=== PATIENT | female | born 1945 | race Caucasian/White ===

== ENCOUNTER → 2018-07-07 | Outpatient (CLI) | payer OTHER, MEDICARE ==
[~2018-07-07] MED LIST: ACYCLOVIR 400400 MG PO; ADULT LOW DOSE81 MG PO; AMOXICILLIN500 M1 PO; CALCIUM 600 +1 EAC7 PO; CALCIUM 600 +1 EAC8 PO; CIPROFLOXACIN500 M3 PO; FERRO-TIME325 MG PO; FISH OIL 1,0001 EAC5 PO; FLAGYL500 MG PO; FLUOCINONI0.05 %/65 TRANSDERM; FOLIC ACID1 MG PO; GLUCOSAMINE &1 EAC1 PO; HYDROCODON-ACE1 EACH PO; IRON325 PO; LEVAQUIN 500 M500 M2 PO; LEXAPRO 10 MG T10 MG PO; LIPITOR40 MG PO; LOMOTIL TABLET1 EACH PO; MULTI VITAMIN1 EACH PO; MULTIVITAMINS PO; NAPROSYN500 MG PO; OMEPRAZOLE20 M1 PO; PANTOPRAZOLE SO40 M1 PO; POTASSIUM CITR10 ME1 PO; PREMPRO 0.3 MG1 EACH PO; SLOW RELEASE I142 M1 PO; TRIAMCINOLONE A80 G2 TRANSDERM; VANIQA60 GM TRANSDERM; VITCB500GO PO
== END ==
LOC: RAD 16:15
DX: R05 Cough (principal); R63.4 Abnormal weight loss; M85.89 Other specified disorders of bone density and structure, multiple sites; M47.816 Spondylosis without myelopathy or radiculopathy, lumbar region; M48.061 Spinal stenosis, lumbar region without neurogenic claudication

== ENCOUNTER 2018-07-11 09:56 | Inpatient (IN) | payer OTHER, MEDICARE ==
[~2018-07-11] VITALS: Ht 165.1 cm; Wt 58.3 kg
--- NOTE | ~2018-07-11 | HC ---
[facility] [place] [address] CONSULTATION Name: TUAN SALINAS Room #: 203-P [facility] IN ..#: [id number] Admission: 07/11/18 Attend Phys: Carl Wharton MD Discharge: Date of : 43 Report #: [id number] THIS REPORT FOR: //name// CC: Carl Durbin DATE OF SERVICE: 07/17/2018 HISTORY OF PRESENT ILLNESS: A 73-year-old female with hyperlipidemia, ulcerative colitis, status post prior colon resection, admitted this time with continuing cough, weight loss, and decreased appetite. She was noted to have multiple lung nodules as well as possible mets, right lung, left anterior ribs, sternum and in the brain. There is a soft tissue mass 7 x 8 mm anterior horn, left lateral ventricle. Course has been complicated by pulmonary embolism and she is being anticoagulated. Plan is for a possible biopsy soon. She has had an overall functional decline. We are seeing her in rehabilitation medicine consultation. PAST MEDICAL HISTORY: Includes ulcerative colitis, depression, hypercholesterolemia, history of kidney stones, pouchitis x 3 since colon resection, staghorn left kidney surgery x 3. 0 ALLERGIES: ADHESIVE TAPE, NONSTEROIDALS. MEDICATIONS: Please see the full medication listing. This includes vitamins, herbals, and supplements per report. HABITS: Nonsmoker. Only has alcohol on special occasions. SOCIAL HISTORY: House, spouse, 2 steps in. Did not utilize gait aids. Daughter in the area. REVIEW OF SYSTEMS: She has the cough, decreased appetite. Complains of generalized weakness. No current chest pain or abdominal discomfort or shortness of breath. PHYSICAL EXAMINATION: GENERAL: A 73-year-old female in no obvious distress. She is alert, pleasant. VITAL SIGNS: Last recorded temperature 97.9, pulse 75, respirations 16, blood pressure 137/76. She is alert, follows basic 1-step commands. HEENT: Facies are symmetric. EXTREMITIES: She has functional range of motion of both upper extremities with strength grade 4- to 3+/5. DTRs are trace to 1. Lower extremities, no focal calf swelling. Functional range of motion with strength grade 4-/5. DTRs are trace to 1. She is min assist with sit to stand. Gait was 45 feet min assist with a front-wheeled walker. [address] [address] CONSULTATION Name: BRADTUAN L Room #: 203-[facility]#: [id number] Admission: 07/11/18 Attend Phys: Carl Wharton MD Discharge: Date of : 43 Report #: [id number] ASSESSMENT: A 73-year-old white female with the following problem list: 1. 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 2. Suspected lung cancer was primary with apparent metastases to the mediastinum, left adrenal gland. 3. Multiple pulmonary nodules. 4. Pulmonary embolism, on heparin. 5. Nausea and vomiting, decreased appetite. 6. History of ulcerative colitis, status post colectomy. 7. Urinary tract infection. PLAN: Therapies are working with her to try to keep up her strength and endurance. Apparently under consideration for biopsy, possibly tomorrow depending upon her medical stability with the pulmonary embolism and anticoagulation. We will be glad to follow along with you regarding her rehab therapy needs. By: [id number] Waqas Potter MD /nt
[~2018-07-11 09:56] MED LIST changes: -IRON325 PO; -OMEPRAZOLE20 M1 PO; -POTASSIUM CITR10 ME1 PO
[2018-07-11 09:57] VITALS: BP 127/69
[2018-07-11 11:22] LABS: ABSOLUTE NEUTROPHILS 11.2 thou/uL (1.4-8.2); BASOPHILS 0.4 % (0.0-2.0); EOSINOPHILS 2.9 % (0.0-3.0); HEMATOCRIT 40.6 % (37.0-47.0); HEMOGLOBIN 13.7 gm/dL (12.0-15.0); LYMPHOCYTES 9.3 % (24.0-44.0); MCH 27.9 pg (26.0-34.0); MCHC 33.7 g/dL (28.0-37.0); MCV 82.9 fL (80.0-100.0); MONOCYTES 7.9 % (1.0-8.0); PLATELET COUNT 356 thou/uL (150-400); POLYS 79.5 % (36.0-66.0); WBC 14.1 thou/uL (4.0-11.0)
[2018-07-11 11:27] LABS: CALCIUM 10.1 mg/dL (8.5-10.1); POTASSIUM 4.1 mmol/L (3.5-5.1)
--- NOTE | 2018-07-11 13:15 | EKG ---
[place] [address] [facility] [place] [address] ELECTROCARDIOGRAM REPORT Name: TUAN SALINAS [id number] Admission: 07/11/18 Attend Phys: Discharge: Date of : 43 Report #: [id number] THIS REPORT FOR: //name// [facility] ED Test Date: 2018-07-11 Test Time: 11:34:06 Pat Name: TUAN SALINAS Department: Room: Gender: F Motor And Controls Tester: DUNIA : 1945 Requested By: Phillip Suarez Order Number: [id number] MD: Jostin Robledo Measurements Intervals Ute Rate: 84 P: 36 MI: 164 QRS: -10 QRSD: 95 T: 15 QT: 383 QTc: 453 Interpretive Statements Sinus rhythm Low voltage, precordial leads Compared to ECG 03/04/2011 09:34:40 Low QRS voltage now present Electronically Signed On 07-11-2018 13:15:07 TANK OFFICER by Jostin Robledo [email or web address] <ELECTRONICALLY SIGNED> By: Jostin Robledo MD 07/11/18 1315 1134 1134 Jostin Robledo MD /SYLWIA
[2018-07-11 14:50] VITALS: BP 112/60
[2018-07-11 15:06] LABS: ALBUMIN 3.5 g/dL (3.4-5.0); DIRECT BILIRUBIN < 0.1 mg/dL (<0.1-0.3); SGOT 25 U/L (15-37); SGPT 13 U/L (30-65); TOTAL BILIRUBIN 0.5 mg/dL (<0.1-1.0); TOTAL PROTEIN 8.2 g/dL (6.4-8.2)
[2018-07-11 15:33] VITALS: BP 120/63
[2018-07-11] MEDS ORDERED: LOMOTIL TABLET1 EACH PO (15:36)
[2018-07-11] MEDS ORDERED: POTASSIUM CITR10 ME1 PO (15:36)
[2018-07-11] MEDS ORDERED: ACYCLOVIR 400400 MG PO (15:38)
[2018-07-11] MEDS ORDERED: IRON325 PO (15:38)
[2018-07-11] MEDS ORDERED: MULTI VITAMIN1 EACH PO (15:39)
[2018-07-11] MEDS ORDERED: OMEPRAZOLE20 M1 PO (15:40)
[2018-07-11 17:11] VITALS: BP 129/72
--- NOTE | 2018-07-11 18:25 | NUR ---
PT A&OX4, IV INTACT IN R AC. PT C/O HEADACHE PAIN FOR DAYS. ALSO HAVING INCREASED WEAKNESS WITH POOR APPETITITE. ORIENTED PT TO ROOM/ CALL LIGHT. TYLENOL GIVEN FOR WHARTON W/O RELIEF. NEW ORDER OBATAINED FOR HYDROCODONE.
[2018-07-11 19:25] VITALS: BP 119/72
[2018-07-12 03:34] LABS: URINE COLOR YELLOW
[2018-07-12 03:35] LABS: URINE BILIRUBIN NEGATIVE (Negative); URINE BLOOD 1+ (Negative); URINE CLARITY SL.CLOUDY; URINE GLUCOSE-RANDOM* NEGATIVE (Negative); URINE KETONES TRACE (Negative); URINE LEUKOCYTES-REFLEX TRACE (Negative); URINE NITRITE-REFLEX POSITIVE (Negative); URINE PROTEIN (DIPSTICK) TRACE (Negative); URINE SPECIFIC GRAVITY >= 1.030 (1.005-1.035); URINE UROBILINOGEN 0.2 E.U./dl (0.2-1.0)
[2018-07-12 03:41] LABS: CASTS None Seen /LPF (None Seen); MUCUS 0-3 Light strn/LPF (None Seen); SQUAMOUS 0-3 Few /LPF (0-3)
[2018-07-12 03:42] LABS: BACTERIA-REFLEX >30 Many /HPF (None Seen); CRYSTALS None Seen /LPF (None Seen); TRANSITIONAL EPITHEL CELL 4-10 Moderate /LPF (None Seen); WBC CLUMPS Occasional (None Seen)
[2018-07-12 04:55] VITALS: BP 127/65
[2018-07-12 07:20] VITALS: BP 123/61
--- NOTE | 2018-07-12 08:05 | NUR ---
ASSUMED CARE AT 1900, ASSESSMENT COMPLETED. PT REPORTS MODERATE, CONSTANT HEADACHE, GIVEN NORCO WHICH HELPED HER FALL ASLEEP. C/O NAUSEA WITHOUT VOMITING, SOME DRY HEAVES; GAVE ZOFRAN WITH AM MEDS SHE WAS NPO EXCEPT SIPS/MEDS AND STATES SHE OFTEN GETS NAUSEA WITH MEDS ON EMPTY STOMACH. UA CAME BACK POSITIVE FOR UTI, STARTED ON IV ABX. WENT FOR CT SCAN ABOUT 0315, STAT RESULTS CALLED FROM RADIOLOGY AND REPORTED TO SWATI DAVIS NP. NPO AT MIDNIGHT FOR EGD TODAY. NO OTHER CONCERNS, SHIFT REPORT GIVEN AT 0700.
[2018-07-12] MEDS ORDERED: IRON325 PO (09:12)
--- NOTE | 2018-07-12 12:11 | NUR ---
ASSESSMENT-PT LIVES AT HOME WITH HER . PT WALKS ON HER OWN AND DOES HER OWN ADLS. THEY HAVE A DTR THAT LIVES IN THE AREA AND 2 SONS THAT ARE OUT OF TOWN. A SON LIVES IN [place] AND ANOTHER SON IN [place]. PT VOICES NO CONCERNS RELATED TO DC. FOLLOWING TO ASSIST WITH DC PLANNING.
--- NOTE | 2018-07-12 15:49 | NUR ---
GAVE REPORT TO SENIOR SUITES NURSE PATIENT MOVING TO ROOM 220.PT AND TO MEET WITH DR ZEPEDA AT 1600. PT 'S BELONGINGS TO BE PACKED AND SENT WITH PATIENT.
[2018-07-12 15:54] VITALS: BP 123/61
--- NOTE | 2018-07-12 16:53 | NUR ---
PATIENT MOVED TO ROOM 220 REPORTED TO CHARGE NURSE, THAT DR WEINER AND DR ROMO AGREED PER DR WEINER'S RECOMMENDATION THAT LOVENOX NOT BE HELD PATIENT HAS BLOOD CLOT IN LUNG.
[2018-07-12 17:02] VITALS: BP 132/67
[2018-07-12 18:13] LABS: HEMATOCRIT 35.5 % (37.0-47.0); HEMOGLOBIN 11.8 gm/dL (12.0-15.0); MCH 27.7 pg (26.0-34.0); MCHC 33.3 g/dL (28.0-37.0); MCV 83.1 fL (80.0-100.0); RBC 4.28 mil/uL (4.20-5.00); RDW 15.5 % (10.5-14.5); WBC 11.7 thou/uL (4.0-11.0)
[2018-07-12 18:28] LABS: INR 1.1; PROTIME 11.4 Seconds (9.3-11.4)
--- NOTE | 2018-07-12 18:40 | NUR ---
PATIENT TRANSFERRED FROM [facility], REPORT RECEIVED FROM DENAE/LORRIE. PATIENT UP WITH [facility] TO [facility]. PATIENT HAS MULTIPLE MASSES FOUND FROM CT SCAN AND MRI. PATIENT HAS RIGHT AC WITH NS AT 100CC/HR. PATIENT ON CLEAR LIQUID DIET. PATIENT WILL BE NPO TONIGHT FOR EGD TOMORROW, PATIENT STILL WILL GET LOVENOX SHOT TONIGHT PER DR WEINER. COMPUTER INSTRUCTOR/CASSIE CALLED PATIENT WILL NEED TO TRANSFER TO CCU, LARGE , REPORT GIVEN TO LINDA/LORRIE.
[2018-07-12 19:10] VITALS: BP 150/81
[2018-07-12 21:51] VITALS: BP 132/67
--- NOTE | 2018-07-12 22:02 | NUR ---
PT ARRIVED TO UNIT AT APPROX SHIFT CHANGE WITH FAMILY AND BELONGINGS. PT AOX4, VSS, TELE PUT ON, ADMIT STRIP PRINTED & DOCUMENTED. WILL ACKNOWLEDGE/IMPLEMENT ORDERS.
[2018-07-13 02:42] LABS: CREATININE 0.9 mg/dL (0.6-1.0); POTASSIUM 3.7 mmol/L (3.5-5.1)
[2018-07-13 04:33] VITALS: BP 118/59
--- NOTE | 2018-07-13 06:18 | NUR ---
PT AOX4, UP STANDYBY ASSIST, PT ABLE TO MOVE/REPOSITION SELF IN BED. C/O HEADACHE- MANAGED WITH PO PAIN MEDS. DENIES CHEST PAIN. VSS, O2 SATS WNL ON ROOM AIR. NO S/SX OF CARDIAC OR RESP DISTRESS NOTED. HEPARIN CONTINUES PER PROTOCOL. PT RESTED WELL THROUGHOUT NIGHT. WILL CONTINUE TO MONITOR AND FOLLOW POC.
[2018-07-13 07:10] VITALS: BP 122/69
[2018-07-13 11:34] VITALS: BP 122/66
[2018-07-13 14:51] VITALS: BP 130/85
--- NOTE | 2018-07-13 17:22 | NUR ---
ASSESSMENT DOCUMENTED. PT ALERT AND ORIENTED. VSS. RECEIVED PRN PAIN MED FOR WHARTON WITH PARTIAL RELIEF. ON HEPARIN DRIP. NO CONCERN AT THIS TIME. WILL CONTINUE TO MONITOR.
--- NOTE | 2018-07-13 18:43 | HC ---
[facility] [place] [address] CONSULTATION Name: TUAN SALINAS Sadie Room #: 203-[facility] IN ..#: [id number] Admission: 07/11/18 Attend Phys: Carl Wharton MD Discharge: Date of : 43 Report #: [id number] THIS REPORT FOR: //name// CC: Carl Durbin MD DATE OF SERVICE: 07/12/2018 PRIMARY CARE PHYSICIAN: Dr. Yao Durbin. REFERRAL PHYSICIAN: Dr. Sher. REASON FOR REFERRAL: Multiple lung nodules. HISTORY OF PRESENT ILLNESS: The patient is a 73-year-old white female who was admitted with progressive weakness, weight loss, headache for the past week or so. CT chest shows multiple lung nodules. A pulmonary consultation was requested. The patient has been usual self until about few weeks ago, she started to develop intermittent nonproductive cough. She has had a nonproductive cough for the past 2 months. For the past few weeks, she has also had trouble with poor appetite and weight loss. She was scheduled to see a dog hair clipper for evaluation. With worsening symptoms, she presented to the Emergency Room. Otherwise, denies any recent febrile illness, chest pain or hemoptysis, nausea, vomiting, diarrhea. She has never smoked, but has been exposed to secondhand smoke. 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 PAST SURGICAL HISTORY: Status post proctocolectomy in 2002 for ulcerative colitis performed at [facility], tonsillectomy, adenoidectomy as a child. ALLERGIES: None to medications. HOME MEDICATIONS: Reviewed. This include Lipitor, Zovirax, Lomotil, Lexapro, iron supplements, Ativan, Prilosec, potassium supplements. [address] [address] CONSULTATION Name: TUAN SALINAS Room #: 203-P [facility] IN ..#: [id number] Admission: 07/11/18 Attend Phys: Carl Wharton MD Discharge: Date of : 43 Report #: [id number] FAMILY HISTORY: Notable for coronary artery disease in both mother and father, both . SOCIAL HISTORY: , has never smoked, but has been exposed to secondhand smoke. She drinks socially. REVIEW OF SYSTEMS: As mentioned above, otherwise 10-point system review negative. PHYSICAL EXAMINATION: GENERAL: She is awake, alert, in no distress. VITAL SIGNS: Temperature is 98 degrees Fahrenheit, pulse is 80, respiratory rate is 18, blood pressure 130/67 mmHg, saturation 95%. HEENT: Normocephalic, atraumatic. NECK: Supple, without lymphadenopathy or thyromegaly. CHEST: Breath sounds are good bilaterally without any rales or wheezes. CARDIOVASCULAR: Normal S1, S2. No murmurs or gallop. There is no JVD. There is no carotid bruit. Pulses are 2+/4+ bilaterally. ABDOMEN: Soft, nontender, no organomegaly or masses felt. GENITOURINARY: Deferred. RECTAL: Deferred. EXTREMITIES: There is no edema, cyanosis or clubbing. LABORATORY DATA: CT chest shows 3 cm mass in the right lower lobe, medial basal segment, 2 small nodules involving the right lower lobe measuring less than 2 cm in diameter with some evidence of mild central cavitation, bilateral pulmonary embolus involving the right side, felt to be moderate with near complete occlusion involving the right pulmonary artery, mild mediastinal and left hilar adenopathy, diffuse osseous metastatic disease, left adrenal gland metastases, uterine fibroid. CT head reveals small soft tissue mass involving the anterior horn of the left lateral ventricle, possible extension into the third ventricle. Lactic acid is normal. TSH is 1.9. MRI of the brain shows multiple cortical subcortical enhancing foci concerning for tumor, possible enhancing mass involving the cranial nerve 5 on the right. Electrolytes are normal, creatinine is normal. Liver enzymes grossly unremarkable except for elevated alkaline phosphatase. Albumin 3.5. IMPRESSION: 1. Multiple lung nodules and a large lung mass involving the left lower lobe with mild mediastinal adenopathy in this 73-year-old white female. She has what appears to be skeletal metastases along with left adrenal mets. CT head also shows TRANSPLANT WORKER mass. The patient is a lifetime nonsmoker, but has been exposed to secondhand smoke. She had a recent weight loss with complaints of weakness and headaches. Primary bronchogenic carcinoma with metastases is likely. 2. Pulmonary embolus, moderate on the right side. This appears to be acute. It is provoked due to above processes. [facility] [address] [place] [address] CONSULTATION Name: TUAN SALINAS Room #: 203-P [facility] IN M.R.#: [id number] Admission: 07/11/18 Attend Phys: Carl Wharton MD Discharge: Date of : 43 Report #: [id number] 3. Poor appetite, weight loss, nausea, vomiting, likely due to above process. Plans for EGD noted, though I think this could be deferred for now until pulmonary embolus is adequately treated prior to proceeding further workup. 4. Peripheral vascular disease. 5. Osteoarthritis. 6. History of depression. RECOMMENDATION AND DISCUSSION: I think the patient's pulmonary embolus is acute and should be a priority at this time with anticoagulation. Would suggest deferring any elective procedure until she is stable, perhaps 1-2 weeks if possible. Her nausea and vomiting and weight loss may be related to TRANSPLANT WORKER symptoms, TRANSPLANT WORKER metastases. Symptom control may be more appropriate at this time. Once the patient is relatively stable from pulmonary embolus standpoint, I think we can reasonably proceed with tissue biopsy for diagnosis. Perhaps in this case, bone biopsy may be safest to establish a diagnosis. The lung nodules are peripheral and may be amenable for CT needle biopsy. The left lower lobe nodule is too medial for CT needle biopsy. Note that the peripheral lung nodule on the right side is somewhat small, probably too small for needle biopsy. Would recommend heparin weight-based therapy for now. Would await at least a week or so unless the procedure is felt to be emergent. At that time, we will repeat CT angiogram if renal function is adequate to assess whether it is safe to discontinue anticoagulation temporarily prior to proceeding with the procedure. We will await the result of leg Doppler ultrasound. More than likely, the patient may need IVC filter if interruption to anticoagulation is anticipated. I discussed the findings in detail with the patient and her . We also discussed with Dr. Sher. I have also left a message to discuss the case with the GI Service. Thank you for this consultation. <ELECTRONICALLY SIGNED> By: Harley Xie MD 07/13/18 1843 1808 2300 Harley Xie MD /nt
[2018-07-13 19:25] VITALS: BP 120/73
[2018-07-13 23:33] VITALS: BP 120/73
--- NOTE | 2018-07-14 00:56 | NUR ---
ASSUMED CARE OF PT AT SHIFT CHANGE. ASSESSMENTS CHARTED. PT AOX4, VSS, PT UP STANDBY ASSIST, AMBULATES WITH WALKER. O2 SATS REMAIN WNL ON ROOM AIR. NO S/SX OF CARDIAC OR RESP DISTRESS NOTED. HEPARIN DRIP CONTINUES. PT CURRENTLY RESTING IN BED, WILL CONTINUE TO MONITOR AND FOLLOW POC.
[2018-07-14 04:55] VITALS: BP 140/78
[2018-07-14 05:06] LABS: HEMATOCRIT 32.1 % (37.0-47.0); HEMOGLOBIN 10.5 gm/dL (12.0-15.0); MCH 26.9 pg (26.0-34.0); MCHC 32.7 g/dL (28.0-37.0); MCV 82.3 fL (80.0-100.0); RBC 3.9 mil/uL (4.20-5.00); RDW 15.4 % (10.5-14.5); WBC 10.1 thou/uL (4.0-11.0)
[2018-07-14 07:35] VITALS: BP 121/62
[2018-07-14 11:40] VITALS: BP 140/80
--- NOTE | 2018-07-14 12:39 | 2DMMODE ---
[facility] [address] [place] [address] 2 D/M-MODE ECHOCARDIOGRAM Name: TUAN SALINAS Room #: 203-P [facility] IN [facility]#: [id number] Admission: 07/11/18 Attend Phys: Carl Wharton MD Discharge: Date of : 43 Date of Service: 07/14/18 1238 Report #: [id number] THIS REPORT FOR: //name// APPROVED REPORT Study performed: 07/14/2018 09:47:56 EXAM: Comprehensive 2D, Doppler, and color-flow Echocardiogram Patient Location: Bedside Room #: 203 Status: routine BSA: 1.64 HR: 76 bpm BP: 121/62 mmHg Rhythm: NSR Other Information Study Quality: Adequate Risk Factors: Cardiac Risk Factors: Hyperlipidemia Indications Pulmonary Embolism 2D Dimensions IVSd: 9.47 (7-11mm) LVOT Diam: 19.00 (18-24mm) LVDd: 37.43 mm PWd: 9.22 (7-11mm) Ascending Ao: 32.08 (22-36mm) LVDs: 24.58 (25-40mm) Aortic Root: 25.13 mm LV Single Plane 4CH: 58.11 % LV Single Plane 2CH: 52.57 % Volumes Left Atrial Volume (Systole) Single Plane 4CH: 17.32 mL Single Plane 2CH: 35.81 mL LA ESV Index: 17.00 mL/m2 Aortic Valve AoV Peak Geovanny.: 1.22 m/s AO Peak Gr.: 5.97 mmHg LVOT Max P.49 mmHg LVOT Max V: 0.93 m/s MARYSE Vmax: 2.17 cm2 [facility] [address] [place] [address] 2 D/M-MODE ECHOCARDIOGRAM Name: BRADTUAN Sadie Room #: 203-P [facility]#: [id number] Admission: 07/11/18 Attend Phys: Carl Wharton MD Discharge: Date of : 43 Date of Service: 07/14/18 1238 Report #: [id number] Mitral Valve E/A Ratio: 0.8 MV Decel. Time: 175.20 ms MV E Max Geovanny.: 0.60 m/s MV A Geovanny.: 0.72 m/s MV PHT: 50.81 ms IVRT: 58.82 ms TDI E/Lateral E': 7.50 E/Medial E': 10.00 Medial E' Geovanny.: 0.06 m/s Lateral E' Geovanny.: 0.08 m/s Pulmonary Valve PV Peak Geovanny.: 0.85 m/s PV Peak Gr.: 2.91 mmHg FL End Vmax: 0.95 m/s Pulmonary Vein P Vein S: 0.44 m/s P Vein A: 0.31 m/s P Vein D: 0.37 m/s P Vein A Dur.: 100.3 msec P Vein S/D Ratio: 1.19 Tricuspid Valve TR Peak Geovanny.: 2.26 m/s RAP Estimate: 7.00 mmHg TR Peak Gr.: 20.43 mmHg PA Pressure: 27.00 mmHg Left Ventricle The left ventricle is normal size. There is normal LV segmental wall motion. There is normal left ventricular wall thickness. Left ventricular systolic function is normal. The left ventricular ejection fraction is within the normal range. LVEF is 50-55%. Grade I - abnormal relaxation pattern. Right Ventricle The right ventricle is normal size. The right ventricular systolic function is normal. Atria The left atrium size is normal. The right atrium size is normal. Aortic Valve The aortic valve is normal in structure. No aortic regurgitation is present. There is no aortic valvular stenosis. [facility] [address] [place] [address] 2 D/M-MODE ECHOCARDIOGRAM Name: TUAN SALINAS Room #: 203-P [facility] IN [facility]#: [id number] Admission: 07/11/18 Attend Phys: Carl Wharton MD Discharge: Date of : 43 Date of Service: 07/14/18 1238 Report #: [id number] Mitral Valve There is mild mitral annular calcification. Mild mitral regurgitation. No evidence of mitral valve stenosis. Tricuspid Valve The tricuspid valve is normal in structure. Trace tricuspid regurgitation. Pulmonary artery pressure is 27 mmHg. Pulmonic Valve The pulmonary valve is normal in structure. Mild to moderate pulmonic regurgitation. Great Vessels The aortic root is normal in size. IVC is normal in size and collapses >50% with inspiration. Pericardium There is no pericardial effusion. <Conclusion> The left ventricle is normal size. LVEF is 50-55%. Grade I - abnormal relaxation pattern. The right ventricle is normal size. The left atrium size is normal. There is mild mitral annular calcification. Mild mitral regurgitation. Trace tricuspid regurgitation. Pulmonary artery pressure is 27 mmHg. Mild to moderate pulmonic regurgitation. The aortic root is normal in size. There is no pericardial effusion. <ELECTRONICALLY SIGNED> By: Michael Aguilar MD, FACC 07/14/18 1238 1238 1238 Michael Aguilar MD, FACC /INF
[2018-07-14 15:20] VITALS: BP 135/71
--- NOTE | 2018-07-14 17:20 | NUR ---
ASSESSMENT CHARTED - MEDS PER SEP - NO CO'S OF NAUSEA. GIVEN MEDICATIONS FOR COS OF HEADACHE WITH GOOD RELIEF. SANJEEV ONLY SAMLL AMOUNTS OF DIET - PATIENT STATES NO APPITITE - HAS BEEN EATING POPSICLES. PT UP TO THE BATHROOM - REFUSED TO SIT IN THE CHAIR. HEPARIN CONTINUES ORDERED. NO CO'S AT THE PRESENT TIME.
[2018-07-14 19:35] VITALS: BP 149/83
[2018-07-15 04:06] VITALS: BP 141/87
--- NOTE | 2018-07-15 04:55 | NUR ---
ASSESSMENT DOCUMENTED. ON HEPARIN DRIP AT 20.02 UNITS/KG/HR (9.72 ML/HR) INFUSING AT RIGHT FOREARM. COMPLAINT OF THROBBING HEADACHE, 02/10. PRN MEDS FOR PAIN GIVEN WITH GOOD RELIEF. STILL WITH POOR APPETITE. ENCOURAGED TO TAKE SMALL FREQUENT FEEDING. OFFERED SUPPLEMENT DIET BUT PT REFUSED. DENIES ANY N/V. PATIENT REFUSED BATH AND ORAL CARE. PT REQUESTED THAT SHE WOULD WANT DO IT IN THE MORNING. FF UP POC.
[2018-07-15 05:46] LABS: HEMATOCRIT 37.8 % (37.0-47.0); HEMOGLOBIN 12.4 gm/dL (12.0-15.0); MCHC 32.7 g/dL (28.0-37.0); MCV 82.6 fL (80.0-100.0); RBC 4.58 mil/uL (4.20-5.00); RDW 15.4 % (10.5-14.5); WBC 12.1 thou/uL (4.0-11.0)
[2018-07-15 08:00] VITALS: BP 143/84
[2018-07-15 12:00] VITALS: BP 146/86
[2018-07-15 16:00] VITALS: BP 148/74
--- NOTE | 2018-07-15 17:44 | NUR ---
ASSESSMENT TOLERATED - MEDS PER MAR - GIVEN HYDROCODDONE FOR CO'S OF HEADACHE WITH GOOD EFEECT. SANJEEV SMALL AMOUNTS OF DIET AND FLUIDS. - FAMILY ENCOURAGED TO BRING PATIENT IN FOOD - SHE ATE A SLICE OF PIZZA - CHEESECAKE AND ICECREAM THIS EVENING FOR SUPPER. HEPARIN RATE NOT CHAGED FROM THSI A, 22 UNITS AN HOUR APPT @ 1245 WAS 60.2. PT NOT WANTING TO SIT UP - OUT OF BED TO BATHROOM OTHERWISE IN BED. FAMILY AT THE BEDSIDE, NO CO'S AT THE PRESENT TIME.
--- NOTE | 2018-07-15 17:48 | NUR ---
ASSESSMENT CHARTED - MEDS PER SEP - GIVEN TYLENOL FOR CO'S OF GERNERALIZED PAIN WITH GOOD RELIEF. SANJEEV DIET AND FLUIDS.. PT UP IN ROOM - AMBULATED IN THE HALLS. PT STATING HE JUST WANTS TO GO HOME AND THAT HE IS BORED HERE. DRESSING TO LEGS BILATERALLY COMPLETED. WOUNDS WITH SILVADENE APPLIED L LEG APPLIED XEEROFOEM GAUZE DUE TO WOUND THEN ABD APPLIED AND KERLIX. R LEG WITH SILVADENE /ABD AND KERLIX. ODEMA REMAINS TO FEET AND LEGS BILAT. NO CO'S AT THE PRESENT TIME.
[2018-07-15 20:11] VITALS: BP 136/72
--- NOTE | 2018-07-16 00:27 | NUR ---
AOX4, DENIES ANY PAIN. CLEAR LUNG SOUNDS. ON ROOM AIR. ON HEPARIN DRIP AT 22 UNITS/KG/HR (10.68 ML/HR) INFUSING AT RIGHT FOREARM. ENCOURAGED SMALL FREQUENT FEEDING. FF UP POC.
[2018-07-16 05:20] VITALS: BP 144/79
[2018-07-16 07:15] VITALS: BP 148/86
[2018-07-16 11:22] VITALS: BP 131/81
--- NOTE | 2018-07-16 11:54 | NUR ---
FERNANDO DOES NOT SEEM TO BE IN PAIN AT THIS TIME. SHE IS QUITE CONCERNED SHE IS DOES NOT HAVE THE APPETITE TO EAT. EVEN TO DRINK SUPPLEMENT DRINK. SHE HAS STATYED IN BED THROUGH THE DAY. RESPIRATIONS NON LABORED. WILL CONT WITH PLAN OF CARE.
[2018-07-16 19:48] VITALS: BP 122/76
[2018-07-17 04:22] LABS: HEMATOCRIT 34.7 % (37.0-47.0); HEMOGLOBIN 11.6 gm/dL (12.0-15.0); MCH 27.6 pg (26.0-34.0); MCHC 33.5 g/dL (28.0-37.0); MCV 82.5 fL (80.0-100.0); RBC 4.21 mil/uL (4.20-5.00); RDW 15.9 % (10.5-14.5)
[2018-07-17 04:45] VITALS: BP 137/76
[2018-07-17 04:59] LABS: CALCIUM 9.2 mg/dL (8.5-10.1); CREATININE 0.8 mg/dL (0.6-1.0); POTASSIUM 3.2 mmol/L (3.5-5.1)
--- NOTE | 2018-07-17 08:34 | NUR ---
ASSESSMENTS CHARTED. PATIENT UP TO THE BATHROOM 4 TIMES DURING THE NIGHT. MUCUS STOOL. LAB RESULTS SHOWED HEPARIN LOW, RATE INCREASED PER PROTOCOL. C/O HEADACHE, DOSED CHARTED. PLAN OF CARE TO PERFORM BIOPSY ONCE SHE IS MORE STABLE.
--- NOTE | 2018-07-17 14:03 | NUR ---
Poor oral intake continues for several weeks. May want to consider start Clinimix PPN to run 80ml/hr with 250ml 20% lipids MWF until appetite better to prevent further nutrition decline
[2018-07-17 19:45] VITALS: BP 136/72
[2018-07-18 04:45] VITALS: BP 135/79
[2018-07-18 06:28] LABS: HEMATOCRIT 38.3 % (37.0-47.0); HEMOGLOBIN 12.7 gm/dL (12.0-15.0); MCH 27.4 pg (26.0-34.0); MCHC 33.1 g/dL (28.0-37.0); MCV 82.7 fL (80.0-100.0); RBC 4.63 mil/uL (4.20-5.00); RDW 16.3 % (10.5-14.5)
[2018-07-18 06:38] LABS: CALCIUM 9.5 mg/dL (8.5-10.1); POTASSIUM 3.9 mmol/L (3.5-5.1)
--- NOTE | 2018-07-18 07:20 | NUR ---
PT RESTING ON AND OFF THRU THE NOC, PRN PAIN MED GIVEN FOR WHARTON AT HS, VSS, HEPARIN GTT INFUSING,WILL CON'T TO MONITOR PER PPOC.
[2018-07-18 07:34] VITALS: BP 123/79
--- NOTE | 2018-07-18 10:42 | NUR ---
FAXED FACE SHEET TO [facility] SPOKE WITH RASHID IN ADM. SHE RECEIVED AND WILL REVIEW FOR ACUTE REHAB STAY. DCP TO FOLLOW.
--- NOTE | 2018-07-18 13:13 | NUR ---
per phys patient/family interested in AD. Patient and sp report they have completed and hospital should have a copy. Checked with medical records no copy. Called Dr Calhoun office and left message. Inquiring also on Eliquis coverage. Prescription on patients chart. Her [facility] is [facility] [address]. Left message on pharmacy line to inquire into coverage. updated patient who is also agreeable to 5N once stable.
[2018-07-18 16:15] VITALS: BP 124/76
[2018-07-18 20:15] VITALS: BP 151/78
[2018-07-19 04:45] VITALS: BP 152/81
--- NOTE | 2018-07-19 05:36 | NUR ---
ASSUME CARE CARE 1900. PT STABLE. DENIES ANY PAIN. TOLERATES ACTIVITY WITH WALKER TO BATHROOM NEEDS REHAB. PT ON HEPARIN DRIP FOR PE. PLAN IS TO DO BONE BIOPSY WHEN HEALED FROM PE. WILL CONTINUE TO MONITOR AND FOLLOW WITH POC
[2018-07-19 06:31] LABS: HEMATOCRIT 36.1 % (37.0-47.0); HEMOGLOBIN 11.9 gm/dL (12.0-15.0); MCH 27.2 pg (26.0-34.0); MCHC 32.9 g/dL (28.0-37.0); MCV 82.7 fL (80.0-100.0); RBC 4.36 mil/uL (4.20-5.00); RDW 16.3 % (10.5-14.5); WBC 22.8 thou/uL (4.0-11.0)
[2018-07-19 06:40] LABS: CALCIUM 9.6 mg/dL (8.5-10.1); POTASSIUM 4.1 mmol/L (3.5-5.1)
[2018-07-19 08:30] VITALS: BP 135/71
--- NOTE | 2018-07-19 08:45 | NUR ---
PATIENT COMPLETED AD YESTERDAY PLACED ON CHART. PATEINT ACCEPTED TO 5N AND SHE IS IN AGREEMENT WITH PLAN.
[2018-07-19] MEDS ORDERED: AUGMENTIN 500-1 EACH PO (10:36)
[2018-07-19] MEDS ORDERED: HYDROCODONE-AP1 EAC6 PO (10:37)
[2018-07-19] MEDS ORDERED: DEXAMETHASONE 44 M1 PO (10:37)
[2018-07-19] MEDS ORDERED: ENOXAPARIN60 MG/0.1 SUBQ (10:38)
[2018-07-19 13:13] VITALS: BP 133/67
--- NOTE | 2018-07-25 09:09 | HC ---
[facility] [place] [address] CONSULTATION Name: TUAN SALINAS Sadie Room #: 203-P [facility] IN ..#: [id number] Admission: 07/11/18 Attend Phys: Carl Wharton MD Discharge: 07/19/18 Date of : 43 Report #: [id number] THIS REPORT FOR: //name// CC: Dilip Xie MD HISTORY OF PRESENT ILLNESS: This patient was admitted through the Emergency Room with complaints of weight loss, general weakness and nausea, vomiting. She has lost approximately 25 pounds over the last few months and has also complained of headaches. She is a longstanding patient of Dr. Durbin and prior treatment for ulcerative colitis. She is a nonsmoker, but has been exposed to secondhand smoke when previously working and growing up. She describes a nonproductive cough and denies hemoptysis. She was scheduled to see GI as an outpatient prior to this hospitalization and evaluation of her weight loss and diminished appetite. PAST MEDICAL HISTORY: Again, positive for post-colectomy for ulcerative colitis. She had a previous melanoma with local excision from her right flank in March of 2018. PAST SURGICAL HISTORY: Tonsillectomy and adenoidectomy as a child. ALLERGIES: None known. MEDICATIONS: As per the MFR. FAMILY HISTORY: Negative for malignancy. SOCIAL HISTORY: She is occasional social drinker, nonsmoker, though exposed to secondhand smoke. REVIEW OF SYSTEMS: As in history of present illness, otherwise negative. PHYSICAL EXAMINATION: GENERAL: Shows her to be alert. HEENT: Normocephalic. She is thin. NECK: Supple. CHEST: Clear. CARDIOVASCULAR: Normal S1, S2. ABDOMEN: Soft. LYMPHATICS: Did not reveal any supraclavicular, axillary adenopathy. [facility] [address] [place] [address] CONSULTATION Name: MIKE SALINASCHAN Noel Room #: 203-P [facility]#: [id number] Admission: 07/11/18 Attend Phys: Carl Wharton MD Discharge: 07/19/18 Date of : 43 Report #: [id number] EXTREMITIES: No clubbing, cyanosis or edema. NEUROLOGIC: No focal localizing signs. PSYCHIATRIC: Not agitated or confused. HOSPITAL COURSE: A CT scan performed in the Emergency Room shows a 3 cm mass in the right lower lobe with associated adenopathy and a questionable left renal mass. She has bone changes compatible with metastatic disease. MRI of her brain shows possible enhancing mass. ASSESSMENT: Suspected metastatic cancer. PLAN: The patient's CT also showed evidence of pulmonary emboli and she is now on anticoagulation. She is already scheduled for EGD and Dr. Xie wishes to address her emboli prior to consideration of biopsy. She and her understand the need for a tissue diagnosis before embarking on any recommendations or therapy of suspected malignancy. With her weight loss, nausea and vomiting, we could administer a steroid trial to see if this would help with her symptomatology until a directed biopsy and diagnosis is known. She does not appear to be hypocalcemic at this time. Thanks for allowing me to participate in her care and asking me to see her in consultation. Full and further recommendations will be forthcoming following definitive diagnosis. <ELECTRONICALLY SIGNED> By: Lisbeth Meehan MD 07/25/18 0909 [id number] Lisbeth Meehan MD /nt
== END 2018-07-19 14:31 | DRG 871 ==
LOC: ER 09:56 → 2N 14:07 → 4E 14:07 → EROBS 14:07 → 4E 16:32 → ENTRNSPT 07-12 16:10 → SICU 07-12 16:50 → 2N 07-12 18:53 → DELTRNSPT 07-13 12:09 → 2N 07-19 14:27
PROVIDERS: Emergency Medicine; Hospitalist; Internal Medicine Pulmonary Disease; Nurse Practitioner; ADMIT Hospitalist
DX: A41.9 Sepsis, unspecified organism (principal); I26.99 Other pulmonary embolism without acute cor pulmonale; E43 Unspecified severe protein-calorie malnutrition; J18.9 Pneumonia, unspecified organism; G92 Toxic encephalopathy; N39.0 Urinary tract infection, site not specified; G93.89 Other specified disorders of brain; R91.8 Other nonspecific abnormal finding of lung field; Z66 Do not resuscitate; F32.9 Major depressive disorder, single episode, unspecified; E78.00 Pure hypercholesterolemia, unspecified; K21.9 Gastro-esophageal reflux disease without esophagitis; M19.90 Unspecified osteoarthritis, unspecified site; R59.0 Localized enlarged lymph nodes; I73.9 Peripheral vascular disease, unspecified; Z53.8 Procedure and treatment not carried out for other reasons; R16.0 Hepatomegaly, not elsewhere classified; D64.9 Anemia, unspecified; B96.20 Unspecified Escherichia coli [E. coli] as the cause of diseases classified elsewhere; R41.81 Age-related cognitive decline; Z68.21 Body mass index [BMI] 21.0-21.9, adult; Z87.19 Personal history of other diseases of the digestive system; Z87.442 Personal history of urinary calculi; Z79.899 Other long term (current) drug therapy; Z91.048 Other nonmedicinal substance allergy status; Z88.8 Allergy status to other drugs, medicaments and biological substances; Z80.8 Family history of malignant neoplasm of other organs or systems; Z82.49 Family history of ischemic heart disease and other diseases of the circulatory system
CPT/HCPCS: 10081; 10084; 10797

== ENCOUNTER 2018-07-19 10:13 | Inpatient (IN) | payer OTHER, MEDICARE ==
[~2018-07-19] VITALS: Ht 165.1 cm; Wt 59.5 kg
--- NOTE | ~2018-07-19 | H ---
[facility] [place] [address] HISTORY AND PHYSICAL Name: TUAN SALINAS Room #: 503-P ADM IN M.R.#: [id number] Admission: 07/19/18 Attend Phys: Waqas Potter MD Discharge: Date of : 43 Report #: [id number] THIS REPORT FOR: //name// CC: Waqas Durbin DATE OF SERVICE: 07/20/2018 HISTORY AND PHYSICAL/POSTADMISSION PHYSICIAN EVALUATION HISTORY OF PRESENT ILLNESS: The patient is a 73-year-old female with hyperlipidemia, ulcerative colitis, status post prior colon resection, who was originally admitted to [facility] 07/11/2018 with continuing cough, weight loss and decreased appetite. She was noted to have multiple lung nodules as well as possible mets, right lung. Left anterior ribs, sternum and the brain. There was a soft tissue mass 7 x 8 mm anterior horn, left lateral ventricle. Her course was complicated by a pulmonary embolism and she was anticoagulated. She is to have biopsies done as an outpatient. Decadron dose was decreased. She had been on heparin with reduction in size of her pulmonary embolism. Elevated white blood count was thought to likely be from steroids. She also had suspected cancer to the left adrenal gland. This was thought to be lung cancer versus melanoma. Her course was complicated by toxic metabolic encephalopathy, which is gradually improving. She is noted to have significant functional decline and she has now been admitted for acute in-hospital inpatient rehabilitation. 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 ALLERGIES: ADHESIVE TAPE AND NONSTEROIDALS. MEDICATIONS: Please see the full medication listing. This includes vitamins herbal supplements as per report. HABITS: Nonsmoker, only had alcohol on special occasions. SOCIAL HISTORY: House of 2 steps in, did not utilize gait aids, daughter in the area. REVIEW OF SYSTEMS: The patient was seen yesterday after admission and some decreased appetite. Complains of generalized weakness. She denies any chest pain, abdominal discomfort or shortness of breath. PHYSICAL EXAMINATION: GENERAL: The patient was seen yesterday after admission, she was noted to have [facility] [address] [place] [address] HISTORY AND PHYSICAL Name: TUAN SALINAS Room #: 503-P [facility] IN ..#: [id number] Admission: 07/19/18 Attend Phys: Waqas Potter MD Discharge: Date of : 43 Report #: [id number] no specific complaints. She was alert, pleasant could follow basic 1-step commands. HEENT: Appeared to be benign. NEUROLOGIC: Cranial nerves are grossly intact. There was some delay to her responses. She can follow basic 1 step commands. Facies appeared symmetric. CHEST: Some diffuse decreased breath sounds throughout. CARDIOVASCULAR: Regular rate and rhythm. ABDOMEN: Bowel sounds positive, nontender. GENITOURINARY AND RECTAL: Deferred. ASSESSMENT: 1. Brain mass anterior horn, left lateral ventricle. 2. Toxic metabolic encephalopathy, which appears to be improving. 3. Likely metastasis to the brain. 4. Suspected lung cancer versus melanoma as primary with apparent metastases to the mediastinum and left adrenal gland. Biopsy to be done as an outpatient. 5. Multiple pulmonary nodules. 6. Pulmonary embolism, which the patient has been anticoagulated. 7. Decreased appetite. 8. History of ulcerative colitis, status post colectomy. 9. Urinary tract infection. PLAN: She is admitted for acute in-hospital inpatient rehabilitation. From a post-admission physician evaluation perspective, there are no relevant changes since the preadmission screening. Please see the above review of prior and current medical and functional conditions and comorbidities. Please see the patient's previous and current functional status. As far as risk of complications, the patient has multiple medical comorbidities as noted above. Initial plan of care involves the interdisciplinary acute inpatient rehabilitation program with goal maximizing the patient's functional ____. Her measurable functional goals would be for the patient to become modified independent with transfers, mobility, ADLs, cognition, so that she can return back to the home setting. Prognosis is reasonably good with estimated length of stay probably at least 7-14 days pending progress. Potential barriers would include her multiple medical comorbidities and decreased functional status. The patient meets diagnostic criteria for an acute in-hospital inpatient rehabilitation stay. She meets the medical necessity criteria. We will have the multiple quality assurance consultant physicians continue to follow. She does have the tolerance for therapies and has appropriate discharge goals back to the home setting. By: [id number] Waqas Potter MD /nt
--- NOTE | ~2018-07-19 | PLAN ---
[facility] [place] [address] REHAB UNIT PLAN OF CARE Name: TUAN SALINAS Room #: 503-P ADM IN M.R.#: [id number] Admission: 07/19/18 Attend Phys: Waqas Potter MD Discharge: Date of : 43 Report #: [id number] THIS REPORT FOR: //name// CC: Waqas Durbin DATE OF SERVICE: 07/21/2018 PROGRESS NOTE/OVERALL PLAN OF CARE HISTORY: The patient is seen back today in followup. She is in no distress. Last recorded temperature 98.2, pulse 61, respirations 18, blood pressure 145/66. She has been working in therapies with transfers, min assist; gait min assist 125 feet without a device. She is min assist to go up and down four stairs. In occupational therapy, lower body dressing is min assist. In speech therapy, she has [id number] cognitive deficits. ASSESSMENT: 1. Brain mass anterior horn, left lateral ventricle. 2. Likely metastases to the brain. 3. Toxic metabolic encephalopathy, which appears to be improving. 4. Suspected lung cancer versus melanoma as primary with apparent metastases also to the mediastinum and left adrenal gland. Biopsy to be done as an outpatient. 5. Multiple pulmonary nodules. 6. Pulmonary embolism for which the patient has been anticoagulated. 7. Decreased appetite. 8. History of ulcerative colitis, status post colectomy. 9. Urinary tract infection. PLAN: The overall plan of care is based on the preadmission screen, post-admission physician evaluation and information garnered from therapy assessments. 1. Estimated length of stay is at least 7-10 days, pending progress. 2. Medical prognosis is reasonably good. 3. Anticipated interventions includes the interdisciplinary acute inpatient rehabilitation program with goal of maximizing the patient's functional independence, so that she can hopefully return back to her home setting. This will include physical therapy, occupational therapy, and speech therapy, rehabilitation nursing assisting regarding medication management, skin care prophylaxis, bowel and bladder issues and nursing education. Case management is involved as well as the interdisciplinary acute rehabilitation team. We are also having the multiple technical sales consultant physicians involved. 4. Anticipated functional outcomes would be for the patient to become modified independent at least at a walker level with mobility and ADLs as well as improvement as far as cognition. [address] [address] REHAB UNIT PLAN OF CARE Name: TUAN SALINAS Room #: 503-P [facility] IN [facility].#: [id number] Admission: 07/19/18 Attend Phys: Waqas Potter MD Discharge: Date of : 43 Report #: [id number] 5. Discharge destination would be back where she lives in her house, daughters in the area. 6. Expected therapy by discipline includes PT, OT and speech 1 hour per day each 5 days a week throughout the duration of the acute inpatient rehabilitation stay. By: [id number] Waqas Potter MD /nt
[~2018-07-19 10:13] MED LIST changes: +IRON325 PO; +OMEPRAZOLE20 M1 PO; +POTASSIUM CITR10 ME1 PO
[2018-07-19] MEDS ORDERED: AUGMENTIN 500-1 EACH PO (10:36)
[2018-07-19] MEDS ORDERED: DEXAMETHASONE 44 M1 PO (10:37)
[2018-07-19] MEDS ORDERED: HYDROCODONE-AP1 EAC6 PO (10:37)
[2018-07-19] MEDS ORDERED: ENOXAPARIN60 MG/0.1 SUBQ (10:38)
--- NOTE | 2018-07-19 14:43 | NUR ---
ASSESSMENT CHARTED - MEDS PER MAR - NO CO'S OF PAIN OR NASUEA. SANJEEV DIET AND FLUIDS. PT UP TO THE BATHROOM WITH THE USE OF WALKER - PT GIVEN ELIQUIS THIS AM AND HEPARIN D/C'D. SEEN BY PT THIS AM - PT TO REHAB THIS AFTERNOON - REPORT CALLED TO [facility] - TO REHAB VIA WHEELCHAIR NO CO'S AT TIME OF D/C.
[2018-07-19 15:15] VITALS: BP 143/79
[2018-07-19 19:49] VITALS: BP 149/74
--- NOTE | 2018-07-20 03:38 | NUR ---
ASSUMED CARE OF PT AT 1915. PT ALERT AND ORIENTED X4. AMBULATES TO BATHROOM WITH STANDBY ASSIST OF ONE USING GAIT BELT AND WALKER. DENIES PAIN, NAUSEA OR DYPSNEA. HAS HAD LOOSE BM'S X3 TONIGHT. HAS APPEARED TO BE SLEEPING WHEN CHECKED ON HOURLY ROUNDS. FALL PRECAUTIONS IN PLACE.
[2018-07-20 06:13] LABS: HEMATOCRIT 35.8 % (37.0-47.0); HEMOGLOBIN 11.8 gm/dL (12.0-15.0); MCH 27.5 pg (26.0-34.0); MCHC 32.9 g/dL (28.0-37.0); MCV 83.5 fL (80.0-100.0); RBC 4.29 mil/uL (4.20-5.00); RDW 16.6 % (10.5-14.5); WBC 25.3 thou/uL (4.0-11.0)
[2018-07-20 06:22] LABS: CALCIUM 9.7 mg/dL (8.5-10.1); POTASSIUM 4.2 mmol/L (3.5-5.1)
[2018-07-20 07:47] VITALS: BP 137/71
--- NOTE | 2018-07-20 10:45 | NUR ---
Nutrition follow-up: Pt now on rehab unit. Wt is up ~2 lbs over past 4 days. Per nursing, pt is eating very well now w/ ~85% intake of breakfast this morning. Pt showering during attempted visit. Consider low risk.
--- NOTE | 2018-07-20 13:00 | NUR ---
cm visited with pt at bedside. education on dcp, transition of care, home health, outpt rehab and team meetings. pt is a & o x 3, and able to make her needs know. ashley reported " live in house with , 2 steps to enter from garage. have basement and 2nd flood but i will not have to use the stairs, everything is on main level. my daughter and boyfriend have been helping, cooking and cleaning. was independent prior to hospital. have built in shower bench. have walker that was my mom and i can use that if needed. was driving 2-3 days before the hospital. no home health or rehab in past"/ashley. will cont following as needed for dc needs.
--- NOTE | 2018-07-20 17:37 | NUR ---
ASSUMED CARE AT APPROX 0715. PATIENT A/O X4. DENIES PAIN. VSS. UP X1 GB WALKER. PARTICIPAING IN THERAPY. PRN LOMOTIL GIVEN TO ASSIST WITH FREQUENT BMS. UP TO TOILET OR BSC, BRIEFS IN PLACE FOR STRESS INCONTINENCE. FALL PRECAUTIONS IN PLACE. WILL CONTINUE TO MONITOR.
[2018-07-20 19:40] VITALS: BP 145/66
--- NOTE | 2018-07-21 03:24 | NUR ---
ASSESSMENT: PT REMAIN ALERT AND ORIENT TIMES FOUR. UP WITH SBA, STEADY GAIT TO BR. DENIES PAIN. VSS, AFEBRILE. NO CODE STATUS NOTED. NON-PRODUCTIVE COUGH, GOOD EFFORT IN COUGHING. L UPPER ARM IV PATENT AND INTACT. TOLERATING PO INTAKE. SLOW PROGRESS TOWARDS DC GOALS, WILL CONTINUE TO MONITOR.
[2018-07-21 08:29] VITALS: BP 146/78
--- NOTE | 2018-07-21 11:27 | NUR ---
ASSUMED CARE AT 0700. PATIENT IS ALERT AND ORIENTED X3, BUT FORGETFUL. PATIENT VANCE, WATER FILTRATION TECHNICIAN ARE EQUAL. LUNGS ARE CLEAR AND DEMINISHED. ABD IS SOFT WITH BSX4. PATIENT IS SBA WITH GAIT BELT AND ASSIST OF 1 TO THE BR. PATIENT HAS LEFT UPPER ARM S.L. SITE WITHOUT REDNESS OR SWELLING. FALL AND SAFETY PROTOCOLS IN PLACE. DENIES ANY PAIN. CONTINUES TO PROGRESS SLOWLY TOWARDS D/C GOALS. WILL CONTINUE TO MONITER.
[2018-07-21 20:12] VITALS: BP 146/79
--- NOTE | 2018-07-22 02:09 | NUR ---
ASSUMED CARE OF PT AT 1915. PT UP IN WHEELCHAIR THROUGH THE EVENING, VISITING WITH FAMILY. TRANSFERS TO BED WITH ASSIST OF ONE USING GAIT BELT. DENIES PAIN, NAUSEA OR DYPSNEA. PT IS IMPULSIVE, CONFUSED, FORGETFUL. HAS APPEARED TO BE SLEEPING WHEN CHECKED ON HOURLY ROUNDS. BED ALARM ON.
--- NOTE | 2018-07-22 02:12 | NUR ---
ASSUMED CARE OF PT AT 1915. PT ALERT AND ORIENTED X4, CALM AND COOPERATIVE. AMBULATES TO BATHROOM WITH STANDBY ASSIST USING GAIT BELT AND WALKER. HAVING SMALL SOFT UNFORMED BM'S WITH EACH VOID. DENIES PAIN, NAUSEA OR DYPSNEA. HAS APPEARED TO BE SLEEPING WHEN CHECKED ON HOURLY ROUNDS. FALL PRECAUTIONS IN PLACE.
[2018-07-22 07:15] VITALS: BP 154/87
--- NOTE | 2018-07-22 16:37 | NUR ---
ASSUMED CARE AT APPROX 0715. PATIENT A/O X4. C/O HEADACHE. PRN HYDROCODONE ADMINISTERED, PATIENT REPORTED SOME RELIEF. PARTICIPATED IN THERAPY. NEEDING ENCOURAGEMENT TO COME OUT TO TABLES FOR MEALS. CALLS APPROPRIATELY FOR ASSISTANCE. UP X1 GB & WALKER. FALL PRECAUTIONS IN PLACE. PATIENT ABLE TO REPOSITION HERSELF IN BED, EDUCATED ON FLOATING HEELS OFF BED AND ELEVATING LEGS WHEN IN RECLINER. WILL CONTINUE TO MONITOR.
[2018-07-22 19:31] VITALS: BP 141/79
--- NOTE | 2018-07-23 03:46 | NUR ---
ASKS APPROPRIATELY FOR ASSIST UP TO TOILET. SBA WITH GAIT BELT AND WALKER. VOIDING WELL, LOOSE STOOL, AND MANAGES OWN STRESS INCONTINENCE BRIEF WHICH HAS BEEN DRY ALL SHIFT.
[2018-07-23 05:50] LABS: HEMATOCRIT 38.6 % (37.0-47.0); HEMOGLOBIN 12.7 gm/dL (12.0-15.0); MCH 27.4 pg (26.0-34.0); MCHC 32.9 g/dL (28.0-37.0); MCV 83.1 fL (80.0-100.0); RBC 4.64 mil/uL (4.20-5.00); RDW 16.5 % (10.5-14.5); WBC 27.9 thou/uL (4.0-11.0)
--- NOTE | 2018-07-23 06:00 | NUR ---
TWICE LAST EVENING, PATIENT WAS UP TO TOILET SBA WITH GAIT BELT AND WALKER. VOIDED WELL WITH MOD AMT LOOSE STOOL, MANAGING STRESS INCONTINENCE BRIEF, DRY AT THAT TIME. THIS MORNING SHE NEEDED TO VOID URGENTLY AND WAS OFFERED BSC BECAUSE SHE ALREADY HAD A WET BRIEF AND WAS UNSURE THAT SHE COULD MAKE IT TO THE TOILET WITHOUT GOING "ALL OVER THE PLACE", UP TO BSC FOR 200 VOID AND BRIEF CHANGE. SELF CARE IAIN-CARE WITH WET WIPES
[2018-07-23 07:15] VITALS: BP 152/84
--- NOTE | 2018-07-23 08:57 | NUR ---
ASSUMED CARE AT 0700. PATIENT IS ALERT AND ORIENTED X4. PATIENT VANCE'S, MANAGER IMAGING ARE EQUAL. LUNGS ARE CLEAR, ABD IS SOFT WITH BSX4. NO SKIN ISSUES. UP TO THE BATHROOM WITH ASSIST OF 1 STAFF WITH GAIT BELT AND WALKER. FALL AND SAFETY PROTOCOLS IN PLACE. DENIES PAIN AT THIS TIME. CONTINUES TO PROGRESS TOWARDS D/C GOALS. S.L. IN LEFT UPPER ARM. SITE WITHOUT REDNESS OR SWELLING. WILL CONTINUE TO MONITER.
[2018-07-23 23:22] VITALS: BP 139/83
--- NOTE | 2018-07-24 02:12 | NUR ---
PT LYING IN BED. LORTAB PROVIDING HEADACHE RELIEF. RESTING COMFORTABLY. NO NEEDS VOICED. CALL LIGHT WITHIN REACH. WILL CONTINUE TO PROVIDE FREQUENT OBSERVATION.
[2018-07-24 07:00] VITALS: BP 127/73
[2018-07-24 19:09] VITALS: BP 140/75
--- NOTE | 2018-07-24 19:54 | NUR ---
ASSUMED CARE AT APPROX 0715. PATIENT A/O X4. C/O HEADACHE, PRN PAIN MEDS GIVEN X1. PARTICIPATED IN THERAPY. BRIEF IN PLACE FOR URGENCY, PATIENT STAYED CONTINENT. VSS. FALL PRECAUTIONS IN PLACE, PATIENT CALLS APPROPRIATELY FOR ASSISTANCE. ABLE TO MAKE NEEDS KNOWN. PARTICIPATED IN THERAPY. UP IN CHAIR FOR BREAKFAST, NO ISSUES NOTED WITH SWALLOWING, PATIENT REMINDED OF SAFE SWALLOWING STRATEGIES. RESTING IN BED AT CHANGE OF SHIFT.
--- NOTE | 2018-07-25 02:02 | NUR ---
RESTING WELL, ROUTINE HYDROCODONE TO TAKE EDGE OFF PERSISTENT MILD HEADACHE. UP TO BATHROOM WITH STANDBY ASSIST. ASKED IF THERE IS SOMETHING IN HER MEDICATION REGIMEN THAT IS MAKING HER VOID SO OFTEN. PLEASANT
[2018-07-25 08:35] VITALS: BP 170/89
--- NOTE | 2018-07-25 10:13 | NUR ---
ASSUMED CARE AT 0700. PATIENT IS ALERT AND ORIENED X4. PATIENT VANCE'S. ETHNIC ORIGINS TEACHER ARE EQUAL. ABD IS SOFT WITH BSX4. PATIENT WEARS BRIEF AND HAS EPISODES OF INCONTINENCE. PATIENT ALSO AMBULATES TO BR OR CAN USE BSC. FALL AND SAFETY PROTOCOLS IN PLACE. DENIES ANY PAIN AT THIS TIME. WILL CONTINUE TO MONITER.
--- NOTE | 2018-07-25 13:17 | NUR ---
team meeting, recommendation: 25th, home with hh ( pt, ot, st, nursing), outpt neuro pysch. possible needs fww. already filled rx for eliquis.
[2018-07-25 20:00] VITALS: BP 141/85
--- NOTE | 2018-07-26 03:13 | NUR ---
ASSUMED CARE OF PT AT 1915. PT ALERT AND ORIENTED X4. AMBULATES TO BATHROOM WITH GAIT BELT, WALKER, AND STANDBY ASSIST. C/O HEADACHE X1, TREATED WITH LORTAB. DENIES NAUSEA, DYPSNEA. HAS APPEARED TO BE SLEEPING WHEN CHECKED ON HOURLY ROUNDS. FALL PRECAUTIONS IN PLACE.
[2018-07-26 04:22] LABS: HEMOGLOBIN 12.7 gm/dL (12.0-15.0); MCH 27.7 pg (26.0-34.0); MCHC 33.4 g/dL (28.0-37.0); RBC 4.57 mil/uL (4.20-5.00); RDW 17.1 % (10.5-14.5); WBC 26.1 thou/uL (4.0-11.0)
[2018-07-26 07:23] VITALS: BP 123/68
[2018-07-26 10:10] VITALS: BP 126/63
--- NOTE | 2018-07-26 14:01 | NUR ---
ASSUMED CARE AT APPROX 0715. PATIENT A/O X4. VSS. DENIES PAIN. UP X1 ASSIST GB AND WALKER. C/O HEADACHE, MEDICATED FOR PAIN PRIOR TO THERAPY. FALL PRECAUTIONS IN PLACE. PATIENT CALLING APPROPIRATELY FOR ASSISTANCE. PARTICIPATING IN THERAPY. ONCOLOGY PHYSICIAN CONTACTED REGARDING DISCHARGE PLAN FOR ANTICOAGULATION- STATED IT WOULD DEPEND ON WHEN BIOPSY OF LUNG MASSES, TO BE SCHEDULED BY PULMONARY. ACUTE CARE NURSING ASSISTANT CONTACTED REGARDING SCHEDULING OF PROCEDURE. AWAITING CALL BACK. WILL CONTINUE TO MONITOR.
--- NOTE | 2018-07-27 01:01 | NUR ---
ASSUMED CARE OF PT AT 1915. PT ALERT AND ORIENTED X4, CALM AND COOPERATIVE. UP TO BATHROOM WITH STANDBY ASSIST USING GAIT BELT AND WALKER. DENIES PAIN, NAUSEA OR DYPSNEA. ASSESSMENT COMPLETED. PT HAS APPEARED TO BE SLEEPING WHEN CHECKED ON HOURLY ROUNDS. FALL PRECAUTIONS IN PLACE.
[2018-07-27 09:22] VITALS: BP 134/74
--- NOTE | 2018-07-27 11:45 | NUR ---
Nutrition: pt seen per followup. Planned D/C tomorrow. S/w who reports continued improved oral intake. 50-100% of meals on rehab unit. No weight since admission. Previously refused supplements but knows he can order if desires. On MVI, folic acid, ferrous sulfate. Basic good nutrition reviewed for home. Continue as low risk.
--- NOTE | 2018-07-27 14:36 | NUR ---
ASSUMED CARE AT APPROX 0715. PATIENT A/O X4. VSS. C/O HEADACHE, PRN PAIN MEDS GIVEN AVAILABLE. UP X1 ASSIST GB AND WALKER. PARTICIPATING IN THERAPY- DAY TODAY. PATIENT UP FOR BREAKFAST. RESTED IN BED WHEN NOT IN THERAPY- HEELS FLOATED WITH A PILLOW, PATIENT INSTRUCTED TO TURN ONTO HER SIDE. SKIN INTACT. FALL PRECAUTIONS IN PLACE. BRIEFS IN PLACE, PATIENT STAYED CONTINENT. D/C PLANNED FOR TOMORROW. WILL CONTINUE TO MONITOR.
--- NOTE | 2018-07-27 15:19 | NUR ---
jose miguel visited with deirdre [phone] " oh thank you for calling, just had few question about dc, follow up appointment, wbc going up , and clots"/daughter. education on home health, use of walker, follow up instruction on appointment and medication listed on dc paperwork. " ok thank you, if when she is being dc tomorrow have my brother tita on phone so he can hear as well # [phone]"/consuelo dcp home with [facility]
[2018-07-27 15:26] VITALS: BP 134/74
[2018-07-27 20:00] VITALS: BP 141/81
--- NOTE | 2018-07-28 00:29 | NUR ---
PT ALERT AND ORIENTED X 4. AMB TO BR WITH WALKER AND ASSIST X 1 WITHOUT DIFFICULTY. PT DENIES PAIN OR DISCOMFORT. BED ALARM ON FOR SAFETY. PT CHECKED ON HOURLY ROUNDS.
[2018-07-28 05:31] LABS: HEMATOCRIT 36.4 % (37.0-47.0); MCH 27.3 pg (26.0-34.0); MCHC 32.9 g/dL (28.0-37.0); MCV 82.9 fL (80.0-100.0); RBC 4.39 mil/uL (4.20-5.00); RDW 16.6 % (10.5-14.5)
[2018-07-28 08:15] VITALS: BP 130/84
[2018-07-28] MEDS ORDERED: NORCO 5-325 TA1 EACH PO (09:16)
[2018-07-28] MEDS ORDERED: ELIQUIS5 MG PO (09:17)
--- NOTE | 2018-07-28 09:18 | NUR ---
cm passed on to bedside nurse that isaac rivers is to be called with dc instruction as well per daughter deirdre request.
[2018-07-28] MEDS ORDERED: OMEPRAZOLE20 M1 PO (11:28)
[2018-07-28] MEDS ORDERED: PREDNISONE 20 M20 MG PO ×2 (11:28→12:31)
--- NOTE | 2018-07-28 12:07 | NUR ---
ASSUMED CARE AT APPROX 0715. PATIENT A/O X4. ABLE TO VOICE HER NEEDS. VSS. MORNING MEDS GIVEN ORDERED. UP X1 ASSIST GB AND WALKER. PARTICIPATING IN THERAPY. PATIENT UP FOR BREAKFAST. RESTED IN BED WHEN NOT IN THERAPY- HEELS FLOATED WITH A PILLOW, PATIENT INSTRUCTED TO TURN ONTO HER SIDE. REASSESSMENT PER CHART. SKIN INTACT, HAS BRUISES ON LEFT ABD D/T ENOXAPARIN INJECTION FOR PE. PT WILL TAKE ELIQUIS WHEN DC. CONTINUE TO BE ON PREDNISONE 20MG BID PER ONCOLOGIST. INFORMED PT ABOUT PREDNISONE MAY CAUSE INSOMINA. IS AT BEDSIDE. PT WILL BE DC HOME WITH HH. SON REQUESTS TO BE INFORMED ON DISCHARGE INSTRUCTION. FALL PRECAUTIONS IN PLACE. PT CONTINUE B&B BUT HAS STRESS INCONT, BRIEFS IN PLACE. HAD SOFT BM THIS AM. WILL CONTINUE TO MONITOR.
[2018-07-28] MEDS ORDERED: PROTONIX 20 MG20 M1 PO (12:31)
--- NOTE | 2018-07-28 13:59 | NUR ---
THIS STAFF COMMUNICATED WITH DR GLEASON REGARDING TAPERING OFF PREDNISONE, DR ORDERED CONTINUATION OF CURRENT DOSAGE UNTIL PT IS ABLE TO SEE DR GLEASON IN OFFICE. PT TEACHING COMPLETED AND PT VERBALISED UNDERSTANDING. PT DISCHARGED AT 1400 WITH [facility] AND .
== END 2018-07-28 14:01 | disposition home health service (06) | DRG 70 ==
LOC: 2N 14:41 → ENTRNSPT 07-28 13:41 → EDTRNSPTSTS 07-28 13:43
PROVIDERS: Hospitalist; Nurse Practitioner Family; ADMIT Physical Medicine & Rehabilitation
DX: G93.9 Disorder of brain, unspecified (principal); I26.99 Other pulmonary embolism without acute cor pulmonale; C79.31 Secondary malignant neoplasm of brain; C34.90 Malignant neoplasm of unspecified part of unspecified bronchus or lung; N39.0 Urinary tract infection, site not specified; E46 Unspecified protein-calorie malnutrition; C79.72 Secondary malignant neoplasm of left adrenal gland; C78.1 Secondary malignant neoplasm of mediastinum; K51.90 Ulcerative colitis, unspecified, without complications; G92 Toxic encephalopathy; R53.81 Other malaise; B96.20 Unspecified Escherichia coli [E. coli] as the cause of diseases classified elsewhere; F32.9 Major depressive disorder, single episode, unspecified; E78.5 Hyperlipidemia, unspecified; Z66 Do not resuscitate; R91.8 Other nonspecific abnormal finding of lung field; E78.00 Pure hypercholesterolemia, unspecified; D72.829 Elevated white blood cell count, unspecified; T38.0X5A Adverse effect of glucocorticoids and synthetic analogues, initial encounter; C43.59 Malignant melanoma of other part of trunk; I73.9 Peripheral vascular disease, unspecified; M19.90 Unspecified osteoarthritis, unspecified site; Z90.49 Acquired absence of other specified parts of digestive tract; Z87.442 Personal history of urinary calculi; Z91.048 Other nonmedicinal substance allergy status; Y92.89 Other specified places as the place of occurrence of the external cause; Z79.01 Long term (current) use of anticoagulants; Z68.21 Body mass index [BMI] 21.0-21.9, adult
CPT/HCPCS: 10112

== ENCOUNTER → 2018-08-15 | Outpatient (CLI) | payer OTHER, MEDICARE ==
[~2018-08-15] MED LIST changes: +AUGMENTIN 500-1 EACH PO; +DEXAMETHASONE 44 M1 PO; +ELIQUIS5 MG PO; +ENOXAPARIN60 MG/0.1 SUBQ; +HYDROCODONE-AP1 EAC6 PO; +NORCO 5-325 TA1 EACH PO; +PREDNISONE 20 M20 MG PO; +PROTONIX 20 MG20 M1 PO
== END ==
LOC: CAT 14:07
DX: C34.90 Malignant neoplasm of unspecified part of unspecified bronchus or lung (principal); C43.59 Malignant melanoma of other part of trunk; R91.8 Other nonspecific abnormal finding of lung field; G93.9 Disorder of brain, unspecified; M89.9 Disorder of bone, unspecified

== ENCOUNTER → 2018-08-21 | Outpatient (CLI) | payer OTHER, MEDICARE | LOC: PET 13:50 | DX: R91.8 Other nonspecific abnormal finding of lung field (principal); C34.90 Malignant neoplasm of unspecified part of unspecified bronchus or lung; C79.72 Secondary malignant neoplasm of left adrenal gland; I77.811 Abdominal aortic ectasia; I25.10 Atherosclerotic heart disease of native coronary artery without angina pectoris; N20.0 Calculus of kidney; N85.2 Hypertrophy of uterus ==

== ENCOUNTER 2018-09-04 06:24 | Inpatient (IN) | payer OTHER, MEDICARE ==
[~2018-09-04] VITALS: Ht 165.1 cm; Wt 50.8 kg
[2018-09-04 06:25] VITALS: BP 129/87
[2018-09-04] MEDS ORDERED: DEXAMETHASONE2 MG PO (06:44)
[2018-09-04] MEDS ORDERED: ENOXAPARIN30 MG/0.1 SUBQ (06:45)
[2018-09-04] MEDS ORDERED: OMEPRAZOLE 20 M20 M1 PO (06:48)
[2018-09-04 07:27] LABS: HEMATOCRIT 37.5 % (37.0-47.0); HEMOGLOBIN 12.3 gm/dL (12.0-15.0); MCH 28.4 pg (26.0-34.0); MCHC 32.7 g/dL (28.0-37.0); MCV 86.8 fL (80.0-100.0); PLATELET COUNT 230 thou/uL (150-400); RBC 4.32 mil/uL (4.20-5.00); RDW 20.6 % (10.5-14.5); WBC 29.3 thou/uL (4.0-11.0)
[2018-09-04 07:33] LABS: ANION GAP 10 mmol/L (7-16); BUN 20 mg/dL (7-18); CALCIUM 8.7 mg/dL (8.5-10.1); CHLORIDE 100 mmol/L (98-107); CO2 25 mmol/L (21-32); CREATININE 0.8 mg/dL (0.6-1.0); GLUCOSE 132 mg/dL (74-106); POTASSIUM 4.4 mmol/L (3.5-5.1); SODIUM 135 mmol/L (136-145)
[2018-09-04 07:39] LABS: APTT 26.2 Seconds (24.5-32.8); PROTIME 10.6 Seconds (9.3-11.4)
[2018-09-04 07:42] LABS: ALBUMIN 2.6 g/dL (3.4-5.0); DIRECT BILIRUBIN < 0.1 mg/dL (<0.1-0.3); SGOT 12 U/L (15-37); SGPT 29 U/L (30-65); TOTAL BILIRUBIN 0.6 mg/dL (<0.1-1.0); TOTAL PROTEIN 5.7 g/dL (6.4-8.2); TROPONIN-I <0.06 ng/mL (<0.06)
[2018-09-04 08:03] LABS: ABSOLUTE NEUTROPHILS 27.2 thou/uL (1.4-8.2); METAMYELOCYTES 2 %
[2018-09-04 08:04] LABS: ANISOCYTOSIS 2+
--- NOTE | 2018-09-04 08:28 | EKG ---
[address] [place] [address] ELECTROCARDIOGRAM REPORT Name: TUAN SALINAS [id number] ������������������ Admission: 09/04/18 ������������������ Attend Phys: Discharge: ������������������ Date of : 43 Report #: [id number] ����������������������������������������������������������������� [id number] THIS REPORT FOR: //name// [facility] ED Test Date: 2018-09-04 Test Time: 06:41:21 Pat Name: TUAN SALINAS Department: Room: Gender: F Ux Interaction Designer: sammi : 1945 Requested By: Cori Hooker Order Number: [id number] MD: Jostin Robledo Measurements Intervals [place] Rate: 66 P: 38 NE: 137 QRS: 4 QRSD: 88 T: 30 QT: 395 QTc: 414 Interpretive Statements Sinus rhythm Compared to ECG 07/11/2018 11:34:06 No significant changes Electronically Signed On 09-04-2018 8:28:29 CLINIC LEAD by Jostin Robledo [email or web address] ��������������������������������������������� <ELECTRONICALLY SIGNED> ���������������������������������������� By: Jostin Robledo MD ��������������������������������������������� 09/04/18 0828 [id number] Jostin Robledo MD /SYLWIA
[2018-09-04 08:33] LABS: URINE BILIRUBIN NEGATIVE (Negative); URINE BLOOD NEGATIVE (Negative); URINE CLARITY SL CLOUDY; URINE COLOR YELLOW; URINE GLUCOSE-RANDOM* NEGATIVE (Negative); URINE KETONES NEGATIVE (Negative); URINE LEUKOCYTES-REFLEX NEGATIVE (Negative); URINE PROTEIN (DIPSTICK) NEGATIVE (Negative); URINE UROBILINOGEN 0.2 E.U./dl (0.2-1.0)
[2018-09-04 08:36] LABS: URINE NITRITE-REFLEX POSITIVE (Negative)
[2018-09-04 08:50] LABS: CASTS None Seen /LPF (None Seen); CRYSTALS None Seen /LPF (None Seen); SQUAMOUS None Seen /LPF (0-3); URINE RBC None Seen /HPF (0-2); URINE WBC-REFLEX 0-5 Rare /HPF (0-5)
[2018-09-04 09:46] VITALS: BP 152/81
[2018-09-04 09:54] VITALS: BP 152/81
[2018-09-04 11:14] VITALS: BP 139/66
--- NOTE | 2018-09-04 12:36 | NUR ---
PT ADMITTED TO THE 4W FROM THE ER FOR NOSEBLEED AND WEAKNESS. HAS HX OF BRAIN TUMOR, LUNG TUMOR AND ALOT OF"HOT SPOTS " WHIC ARE TO BE BIOPSIED TOMORROW. BEEN ON LOVENOX SINCE JUL 2018. NO LOVENOX UNTIL TOMORROW. PT ALSO HAS HX PE, DEPRESSION. PT IS DNR. DAUGHTER AT BEDSIDE. PT ALERT AND ORIENTED. HAS FLAT AFFECT. ER GAVE THROMBIN KIT TO STOP BLEEDING. DX WITH UTI AT ER AND WILL START ON CEPHAXICIN. SHOOT AIR MESSAGE TO DR. SWEET COUPLE HOURS AGO. CALLED AND STILL WAIT FOR MEDS ORDER. REASSESSMENT PER CHART. NOSEBLEED STABLE. LABS REVIEWEDE. WBC 29.3 D/T PT WAS ON STEROID. ADMISSION ASSESSMENT AND HX IS COMPLETED. PT IS UP IN BED AND EATING LUNCH NOW. HAS MILD LEFT [place] /, DENIES NEED FOR PAIN MED AT THIS MOMENT. CALL LIGHT WITHIN REACH. FALL PRECAUTION IN PLACE. DAUGHTER IS AT BEDSIDE. WILL CONTINUE TO MONITOR.
--- NOTE | 2018-09-04 14:45 | NUR ---
PT ADMITTED RELATED TO [facility]. CM REVIEWED CHART AND SPOKE WITH CARE TEAM. CM MET WITH PT AND DTR ELSY AT BEDSIDE THIS DAY. PT IS A&O X4. CM ROLE INTRODUCED. PT'S DTR INDICATED THAT PT RESIDED IN A HOUSE WITH HER SPOUSE WITH 2 STEPS TO ENTER AND NO STEPS PT USES INSIDE. SHE INDICATED PT HAD USED A FWW TO ASSIST WITH MOBILITY RUBBER INSULATOR. SHE INDICATED THAT PT HAD BEEN ON SERVICE WITH HOME HEALTH UNTIL JUST VERY RECENTLY. PREVIOUS NOTES INDICATED PT HAD BEEN REFERRED TO [facility]. SHE INDICATED THAT PT IS TO HAVE A BIOPSY TOMORROW. SHE INQUIRED ABOUT A "NAVIGATOR" TO ACCOMPANY THEM TO DOCTOR APPOINTMENTS. CM ASKED IF SHE MEANT A PRIVATE DUTY WORKER AND DTR INDICATED SOMEONE IN THE HOSPITAL WHO ASSISTS WITH APPOINTMENTS WITH SPECIALISTS. CM INDICATED THERE MIGHT BE SOMEONE WHO WOULD BE ABLE TO ASSIT WITH THAT ONCE THEY SCHEDULE FOLLOW UP CARES AT FOR ONCOLOGY. DTR ASKED ABOUT PALLIATIVE/HOSPICE CARE CONSULT. CM NOTIFIED NURSE OF THEIR REQUEST. CM TO FOLLOW INDICATED WITH DC PLANNING.
[2018-09-04 15:24] VITALS: BP 130/67
[2018-09-04 19:46] VITALS: BP 139/79
[2018-09-05] VITALS (11 sets, daily range): BP systolic 79–106; BP diastolic 42–68
--- NOTE | 2018-09-05 02:36 | NUR ---
PT USED CALL LIGHT EFFECTIVELY PT SLEPT THROUGH THE NIGHT NO COMPLAINTS OF PAIN NO ISSUES OVERNIGHT NO NASAL BLEEDING.
[2018-09-05 07:03] LABS: HEMATOCRIT 38.4 % (37.0-47.0); HEMOGLOBIN 12.7 gm/dL (12.0-15.0); MCH 28.7 pg (26.0-34.0); MCHC 33.1 g/dL (28.0-37.0); MCV 86.7 fL (80.0-100.0); PLATELET COUNT 183 thou/uL (150-400); RBC 4.42 mil/uL (4.20-5.00); RDW 21.1 % (10.5-14.5); WBC 27.3 thou/uL (4.0-11.0)
[2018-09-05 08:36] LABS: ABSOLUTE NEUTROPHILS 24.6 thou/uL (1.4-8.2); ANISOCYTOSIS 1+; PLATELET ESTIMATE NORMAL
--- NOTE | 2018-09-05 13:21 | NUR ---
TOWARDS POC PT A/O X2, LETHARGIC, VSS, AFEBRILE, PAIN MANAGED BY MEDS. PT HAS DIFFICULTY TAKING PO PILLS DUE TO WEAKNESS. PT HAD WILLARD GUIDED LIVER BIOPSY AT 1230H. WILL CONTINUE TO MONITOR.
--- NOTE | 2018-09-05 15:35 | NUR ---
CM MET WITH PT'S DTR AND HER SPOUSE THIS AFTERNOON. THEY INDICATED THEY WERE INTERESTED IN MEETING WITH SOMEONE ABOUT ELECTING PALLIATIVE CARE/HOSPICE SERVICES UPON DISHCARGE. THEY ALSO ASKED ABOUT ASSISTANCE IN THE HOME UPON DC. CM SPOKE WITH THEM ABOUT HOSPICE AND PALLIATIVE SERVICE PROVIDERS AND PRIVATE DUTY SERVICES AND PROVIDERS. THEY ASKED THAT REFERRAL BE SENT TO HOSPICE AND PALL SERVICES AND THAT [facility] BE CONTACTED FOR PD SERVICES. CM SPOKE WITH MARJORIE AND REFERRAL WAS SENT. CM SPOKE WITH ARJUN MERC[facility]. MARJORIE WILL MEET WITH PT, DTR, AND SPOUSE TOMORROW AT 1:30 AND ARJUN DAVIDSON [facility] WILL MEET WITH THEM AT 10:00. CM TO FOLLOW INDICATED WITH DC PLANNING.
--- NOTE | 2018-09-05 15:49 | NUR ---
dp sent referral to [facility], anticipate dc tomorrow. GERARD spoke with Kristina and they received faxed referral.
--- NOTE | 2018-09-05 21:40 | NUR ---
Daughter called and concerned about her mother not being able to take her po antibiotics for her uti. She wanted to know if the Dr. could change to iv antibiotics. Explained to daughter that I would attempt to give her po anti- biotic po and if unable to take I would call the Dr. This nurse attempted to give pt. some po pudding and she clampped teeth down and held her hand over her mouth. This nurse asked the pt. if she would take her meds and had the same response as when I was attempting to give the pudding. Spoke to Maite CORRALES about this and new orders received (see cpoe). Pt. was also given sterling care as she was soiled and was repositioned. Pt. yelled outloud and was resistive during the care. Bed alarm is on.
[2018-09-06 04:26] VITALS: BP 104/43
[2018-09-06 05:41] VITALS: BP 104/43
--- NOTE | 2018-09-06 06:00 | NUR ---
Pt. rested quietly at intervals during the night when checked on during frequent rounds. Pt. buttocks is red and she will yell out during sterling care. Barrier cream applied after each incontinent episode. Bed alarm is on.
[2018-09-06 08:05] VITALS: BP 105/65
--- NOTE | 2018-09-06 12:01 | NUR ---
Assumed pt care this am, daughter and spouse at bedside. Pt only had a few bites of her egg and sips of water and juice. Pt did not want to open her eyes when activities were being done. Lupe care and barrier cream placed on buttocks that are red everytime pt voided or had a bm. External vaginal catheter placed, as per family request. Pt is repositioned every 2 hours.
[2018-09-06 15:00] VITALS: BP 104/49
--- NOTE | 2018-09-06 16:49 | NUR ---
PT, DTR, AND SPOUSE MET WITH ARJUN WITH [facility] THIS MORNING AND MARJORIE WITH HOSPICE THIS AFTERNOON. THEY WERE WAITING ON DR. GÓMEZ TO VISIT THE DAY TO POSSIBLY HAVE NEWS WITH RESULTS OF BIOPSY DONE. CM MET WITH FAMILY AND THEY FILLED OUT AN OUT OF THE HOSPITAL DNR FORM THAT NEEDS SIGNED BY THE PHYSICIAN. CM PLACED IT ON THE CHART. PT'S DTR INDICATED THAT THEY WERE THINKING THAT THEY WOULD ANTICIPATE ELECTING HOSPICE UPON DISCHARGE AND AWAIT RESULTS TO DETERMINE IF THEY WERE GOING TO PURSUE ANY TREATMENT. CM TO CONFIRM WITH FAMILY, NOTIFY CARE TEAM AND THEN REACH OUT TO [facility] AND HOSPICE TO COORDINATE EQUIPTMENT AND SERVICEES UPON DISCHARGE.
[2018-09-06 19:27] VITALS: BP 104/62
[2018-09-07 03:43] VITALS: BP 121/73
--- NOTE | 2018-09-07 05:39 | NUR ---
Pt. lethargic, but when doing sterling care and repositioning she will yell out. Unable to give pt. her po meds due to lethargy. She did rest quietly most of the night. Bed alarm is on.
[2018-09-07 07:30] VITALS: BP 110/59
[2018-09-07] MEDS ORDERED: ELIQUIS5 MG PO (09:35)
[2018-09-07] MEDS ORDERED: CEFUROXIME250 MG PO (09:41)
[2018-09-07 10:15] VITALS: BP 110/59
--- NOTE | 2018-09-07 10:24 | NUR ---
DISCHARGE PLANNING. PATIENT DISCHARGING TO HOME TODAY. PLAN IS FOR PATIENT TO DISCHARGE WITH HOSPICE SERVICES AT HOME. DISCHARGE ORDERS AND DISCHARGE SUMMARY FAXED TO MARJORIE, HOSPICE INTAKE, VERIFIED RECEIVED. HOSPICE ADMITTING LIAISON TO MEET WITH FAMILY AND PATIENT AT BEDSIDE TODAY. UNIT CM/SW AWARE. FOLLOWING TO ASSIST WITH DISCHARGE NEEDS.
--- NOTE | 2018-09-07 11:07 | PATH ---
[facility] [address] [place] [address] PATHOLOGY RPT PROCEDURE Name: HUE SALINAS Sadie Room #: 456-P [facility] IN M.R.#: [id number] ������������������ Admission: 09/04/18 ������������������ Date of : 43 Discharge: Report #: [id number] Path Case #: [id number] [facility] Accession Number: [id number] . 01 Material submitted: . RIGHT LOBE LIVER . 01 Clinical history: . Nosebleed . 02 Diagnosis: Liver, right lobe, needle core biopsy: - COMPATIBLE WITH METASTATIC MODERATELY DIFFERENTIATED ADENOCARCINOMA, LIKELY OF LUNG ORIGIN (PLEASE SEE COMMENT). - Background liver parenchyma showing mild chronic inflammation and mild steatosis (less than 10%). . (IUV:jacqui; 09/07/2018) QMS/09/07/2018 . 02 Comment: Examination shows a gland forming adenocarcinoma with intracellular mucin in an occasional cell. Macronucleoli are identified as well. Immunohistochemical stains are performed to categorize the unknown primary and included CK7, CK20, CDX2, TTF-1, PAX-8, CK19, and HEP PAR-1 on block A1. Blocks A2 and A3 have no malignant cells present and represent non-neoplastic liver tissue. The tumor shows strong membranous reactivity to CK7, CK19 and strong nuclear reactivity with TTF-1. The remainder of stains are non-reactive. The non-reactive immunohistochemical stains argue against a metastatic melanoma, gastrointestinal origin, a hepatocellular carcinoma as well as a renal cell carcinoma as likely origins. . Iron stain shows 1+ granular reactivity present within zone 1 hepatocytes with a decreasing gradient. Trichrome stain shows mildly enlarged portal tracts; however, no evidence of perisinusoidal or periportal fibrosis. Reticulin stain shows foci of colonization. PAS with and without diastase show Kupffer cell macrophages and are negative for intracytoplasmic globules in zone 1. . Oval Or Circular Glass Cutter slides are co-reviewed by Dr. Lluvia Barger, who concurs with my diagnosis. The preliminary findings of this case are discussed with Dr. Lisbeth Meehan at 11:00 on 09/06/2018. (IUV:jacqui; 09/07/2018) . 02 Electronically signed: . Hallie Narayanan MD, [place] [address] PATHOLOGY RPT PROCEDURE Name: HUE SALINAS Sadie Room #: 456-P [facility] IN M.R.#: [id number] ������������������ Admission: 09/04/18 ������������������ Date of : 43 Discharge: Report #: [id number] Path Case #: [id number] NPI- [id number] . 01 Gross description: . Received in formalin labeled "Hue Salinas, right lobe liver," are 5 distinct needle cores of marcelino soft tissue ranging from 0.3 to 1.8 cm in length and measuring less than 0.1 cm each in diameter. The specimen is submitted entirely in cassettes A1 through A3. (TSD; 09/05/2018) TOB/TOB . 02 Pathologist provided ICD-10: C78.7 . 02 CPT . 999219, [id number], [id number], [id number], [id number], 220304, [id number], [id number] Specimen Comment: A courtesy copy of this report has been sent to Specimen Comment: [phone]. Specimen Comment: Report sent to Performed at: [address], [place] [id number] MD Dusty Henry MD Phone: [phone] Performed at: [address] [id number] MD Hallie Narayanan MD Phone: [phone]
[2018-09-07 11:08] LABS: CORTISOL 30 MIN 13.7 ug/dL (Not Estab.); CORTISOL 60 MIN 14.3 ug/dL (Not Estab.); CORTISOL BASELINE 16.7 ug/dL (())
--- NOTE | 2018-09-07 12:47 | NUR ---
CM FOLLOWED UP WITH PT, SPOUSE, AND DTR THIS DAY AND THEY INDICATED THAT THEY ARE WANTING TO DISCHARGE HOME WITH HOSPICE THIS DAY. CM CALLED AND SPOKE WITH MARJORIE AND THE WILL HAVE AN ADMISSION NURSE AT THE HOME AT 1400. CM ARRANGED [facility] FOR 1400. CM CALLED AND SPOKE WITH SWATI AT [facility] [employer] AND THEY WILL ARRANGE STAFF TO SEE PT THIS AFTERNOON. ORDERS WERE SENT TO HOSPICE. OUT OF HOSPITAL DNR COMPLETED AND SENT WITH PT. NO OTHER CM INTERVENTION INDICATED AT THIS TIME. CASE CLOSED.
[2018-09-07 13:30] VITALS: BP 113/53
--- NOTE | 2018-09-07 14:58 | NUR ---
Assumed pt care this am, pt is more alert compared to yesterday. Pt was able to take her oral medication. Breakfast and lunch was consumed by the pt. Bed bath given. Sterling care done at least 3 times since pt is incontinent of urine and bowel. Zinc oxide and barried cream placed on affected site on the sterling area. DC orders given, education and prescriptions given to the daughter and spouse of the pt. Awaiting transportation for the pt.
--- NOTE | 2018-09-07 16:10 | NUR ---
SPOUSE WAS NOTIFIED THAT HOSPICE WAS EN ROUTE TO THE [facility] BED, BSC, WHEELCHAIR, AND BEDSIDE TABLE. MARGIE HOSPICE NURSE ARRIVED AT THE HOUSE AT 2:00 AND SPOUSE INDICATED TO HER THAT THEY PLANNED ON PURSUEING RADIATION TO THE BRAIN AND THEN HOSPICE INDICATED THAT PT WOULD NEED TO BE PALLIATIVE. THEY NOTIFIED CM AND MARGIE SPOKE WITH THE DTR TO EXPLAIN THAT. DTR CALLED [facility] AND THEY ARE TO HAVE SOMEONE OUT TO THE HOUSE. HOSPICE LEAVING THE EQUIPTMENT IN THE HOME FOR THE TIME BEING. NO OTHER CM INTERVENTION INDICTED AT THIS TIME. CASE CLOSED.
== END 2018-09-07 16:48 | disposition hospice, home (50) | DRG 154 ==
LOC: ER 06:24 → EROBS 09:20 → 4W 09:20
PROVIDERS: Emergency Medicine; Internal Medicine Hematology & Oncology; ADMIT Internal Medicine
PROC: 093K7ZZ Control Bleeding in Nasal Mucosa and Soft Tissue, Via Natural or Artificial Opening (ICD-10-PCS; principal; 2018-09-04)
PROC: 0FB13ZX Excision of Right Lobe Liver, Percutaneous Approach, Diagnostic (ICD-10-PCS; 2018-09-05)
DX: J34.89 Other specified disorders of nose and nasal sinuses (principal); E43 Unspecified severe protein-calorie malnutrition; C79.31 Secondary malignant neoplasm of brain; C34.90 Malignant neoplasm of unspecified part of unspecified bronchus or lung; N39.0 Urinary tract infection, site not specified; E46 Unspecified protein-calorie malnutrition; K51.90 Ulcerative colitis, unspecified, without complications; C78.1 Secondary malignant neoplasm of mediastinum; Z68.1 Body mass index [BMI] 19.9 or less, adult; C78.7 Secondary malignant neoplasm of liver and intrahepatic bile duct; R04.0 Epistaxis; F32.9 Major depressive disorder, single episode, unspecified; E78.00 Pure hypercholesterolemia, unspecified; E78.5 Hyperlipidemia, unspecified; Z66 Do not resuscitate; Z51.5 Encounter for palliative care; Z87.442 Personal history of urinary calculi; Z88.8 Allergy status to other drugs, medicaments and biological substances; Z86.711 Personal history of pulmonary embolism; Z79.899 Other long term (current) drug therapy
CPT/HCPCS: 10045